=== PATIENT | male | born 1945 | race Caucasian/White ===

== ENCOUNTER → 2020-11-27 | Outpatient (CLI) | payer MEDICARE, OTHER ==
--- NOTE | 2020-11-27 12:02 | Diagnostic Imaging Report ---
EXAMINATION: MRI RT UPPER EXT JOINT W/O. TECHNIQUE: Multiplanar, multisequence MR imaging of the right shoulder was performed without contrast. COMPARISON: None available. INDICATION: Right shoulder pain. FINDINGS: Rotator cuff: Full thickness tear in the anterior one-half of the supraspinatus has the stump retracted to the level of the mid humeral head. The subscapularis has moderate tendinopathy with low-grade partial-thickness tearing of the deep fibers. Infraspinatus and teres minor remain intact. No fatty infiltration in the rotator cuff musculature. Glenoid labrum: There is some increased signal within the posterior and anterior labrum which may represent nondisplaced intrasubstance degenerative tearing. No paralabral cyst. Long head of biceps: Medial subluxation of the long head of the biceps due to overlying subscapularis tear. Origin of the long head of the biceps remains intact. Bones and cartilage: Humeral head is normal in morphology without fracture or focal osseous lesion. No glenohumeral chondromalacia. 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 Soft tissues: No glenohumeral joint effusion. No MRI findings to suggest adhesive capsulitis. No fluid or inflammatory like signal within the subacromial/subdeltoid space to indicate bursitis. IMPRESSION: 1. Full-thickness tear of the anterior aspect of the supraspinatus has the stump retracted to the level of the mid humeral head. No muscle belly atrophy. 2. Subscapularis tendinopathy with partial-thickness tearing of the deep fibers. 3. Medial subluxation of the long head of the biceps. Dictated by: Dictated on workstation # [id number]
== END ==
LOC: RAD 09:30
PROVIDERS: ATTEND Family Medicine
DX: M75.121 Complete rotator cuff tear or rupture of right shoulder, not specified as traumatic (principal); M67.813 Other specified disorders of tendon, right shoulder; S43.001A Unspecified subluxation of right shoulder joint, initial encounter
CPT/HCPCS: 73221